=== PATIENT | female | born 1990 | race Hispanic/Latino ===

== ENCOUNTER 2017-06-10 13:44 | Emergency (ER) | payer OTHER ==
[~2017-06-10] VITALS: Ht 152.4 cm; Wt 63.5 kg
[~2017-06-10 13:44] MED LIST: AUGMENTIN 500-1 EACH PO; COLACE100 M1 PO; FEROSUL325 M1 PO; IBUPROFEN800 MG PO; ORTHO TRI-CYCL1 EACH PO; PERCOCET 325 MG1 TA2 PO; PROTONIX 40MG T40 MG PO; TRANDATE-NORMO100 MG PO; ZOFRAN ODT4 MG SL
--- NOTE | 2017-06-10 14:50 | ED INFLUENZA/URI COMPLAINT ---
History of Present Illness General Chief Complaint: Upper Respiratory Sx/Fever Stated Complaint: URI SORE THROAT Source: patient, old records Exam Limitations: no limitations Vital Signs & Intake/Output Vital Signs & Intake/Output Vital Signs Date Time Temp Pulse Resp B/P B/P Pulse O2 O2 Flow FiO2 Mean Ox Delivery Rate 06/10 1546 98.4 94 16 111/67 98 Room Air 06/10 1353 98.0 103 18 128/80 99 Room Air Allergies Coded Allergies: NO KNOWN ALLERGIES (08/02/15) Reconcile Medications Codeine Phosphate/Guaifenesi (Guaifen-Codeine 100-10 MG/5 Ml) 10 MG-100 MG/5 ML LIQUID 10 ML PO Q6HR PRN COUGH Docusate Sodium (Colace) 100 MG CAPSULE 1 CAP PO BID CONSTRIPATION Ferrous Sulfate (Ferosul) 325 MG (65 MG IRON) TABLET 1 TAB PO BID ANEMIA Ibuprofen 600 MG TABLET 1 TAB PO TID PRN FEVER with food Norgestimate-Ethinyl Estradiol (Ortho Tri-Cyclen 28 Tablet) [id number] TABLET 1 TAB PO DAILY vaginal bleeding take BID until vaginal bleeding stops, and then switch to once daily once bleeding stops Oseltamivir Phosphate (Tamiflu) 75 MG CAPSULE 1 CAP PO BID influenza Triage Note: PT TO ER C/C 4 DAY HX OF COUGH, FEVERS, CHILLS AND NAUSEA. FLU SWAB SENT Triage Nurses Notes Reviewed? yes Onset: Abrupt Duration: day(s): (4), constant Timing: recent history Severity: mild, moderate Severity Numbers: 5 No Modifying Factors: none Associated Symptoms: denies : No Patient currently breastfeeds: No HPI: 27-year-old female presents complaining of 4 day history of generalized malaise bodyaches, subjective fever chills cough sore throat. Her daughter is been sick with similar symptoms. She is taking [id number] Tylenol once. She had one episode of vomiting 4 days ago. No diarrhea. No modifying factors or associated symptoms otherwise. (Joao Otero) Past History Travel History Traveled to [place] past 21 day No Medical History Any Pertinent Medical History? see below for history Neurological: NONE EENT: NONE Cardiovascular: NONE Respiratory: NONE Gastrointestinal: NONE Hepatic: NONE Renal: NONE Musculoskeletal: NONE Psychiatric: NONE Endocrine: NONE Blood Disorders: anemia Cancer(s): NONE INTAKE MAN/Reproductive: NONE Other Medical Hx: Splenectomy Surgical History Surgical History: non-contributory Psychosocial History What is your primary language [place] Tobacco Use: Never used Family History Hx Contributory? No (Joao Otero) Review of Systems Review of Systems Constitutional: Reports: see HPI. Comments Review of systems: See HPI, All other systems negative. Constitutional, chills fever, no malaise HEENT: no sore throat no congestion, no ear pain Cardiovascular: No chest pain , no palpitation Skin: no rashes, no change in skin Respiratory: No dyspnea (+) cough GI: No nausea no vomiting, no diarrhea gu: no dysuria Muscle skeletal: No joint pain, no back pain, no neck pain, Neurologic: , no headache Heme/endocrine: No bruising Immunology: No lymphadenopathy (Joao Otero) Physical Exam Physical Exam General Appearance: well developed/nourished, no apparent distress, alert, awake Ears, Nose, Throat: normal ENT inspection Comments: Well-developed well-nourished patient in no apparent distress. Head/Face: Atraumatic, no maxillary/frontal sinus tenderness, no facial swelling Eyes: PERRL, EOMI, no conjunctival injection Ear:External auditory canal and Tympanic membranes clear Nose: atraumatic.Normal inspection: No bleeding Throat: Moist mucous membranes.Pharynx normal. No pharyngeal erythema/exudate seen. No stridor/drooling or assymetry. No swelling or edema. Neck: Supple, no lymphadenopathy, FROM Back: FROM Cardiovascular: Regular rate and rhythms no murmur Respiratory: No respiratory distress. Patient speaking in full complete sentences. Breath sounds clear to auscultation bilaterally: NO W/R/R Extremities: full range of motion Neuro: awake, alert, and oriented to person, place and time. There were no obvious focal neurologic abnormalities. Skin: Warm & dry;No appreciable rash on exposed skin Psych: Mood affect normal, normal memory normal judgment. Core Measures Sepsis Present: No Sepsis Focused Exam Completed? No (Joao Otero) Progress Differential Diagnosis: influenza, pneumonia, pharyngitis, sinusitis Plan of Care: Orders Procedure Date/time Status VIRAL CULTURE 06/10 135 Active RAPID VIRAL INFLUENZA A 06/10 1356 Complete Laboratory Tests 06/10/17 1357: Virus Culture Pending Microbiology 06/10 135 NASOPHARYN: Influenza Virus A & B Rapid Smear - COMP INFLUENZA TYPE A I discussed with the patient at length all of their results. I had an extensive conversation regarding need for close follow up with their primary care physician this week as well as return precautions. I answered all of their questions, they feel comfortable with the plan and follow-up care. I discussed with the patient/family the medications that they will receive. I gave them signs and symptoms that could indicate an adverse reaction. I have advised them to limit their activities until they can see how they respond to the medication. Initial ED EKG: none (Joao Otero) Departure Departure Time of Disposition: 1509 Disposition: HOME OR SELF CARE Condition: Stable Clinical Impression Primary Impression: Influenza Referrals: Patient Has No Primary Care Dr (PCP/Family) Additional Instructions: Tamiflu as directed cough medicine with codeine as discussed -use caution as this is a narcotic and will make you drowsy. No driving while taking. Ibuprofen as discussed. Drink plenty of fluids. rest, primary care physician this week. Departure Forms: Customer Survey General Discharge Information Prescriptions: Current Visit Scripts Oseltamivir Phosphate (Tamiflu) 1 CAP PO BID #10 CAP Codeine Phosphate/Guaifenesi (Guaifen-Codeine 100-10 MG/5 Ml) 10 ML PO Q6HR PRN COUGH #150 ML Ibuprofen 1 TAB PO TID PRN FEVER #30 TAB with food (Joao Otero) PA/TRAVELING REPAIR ACCOUNTANT Co-Sign Statement Statement: ED Attending supervision documentation- I saw and evaluated the patient. I have also reviewed all the pertinent lab results and diagnostic results. I agree with the findings and the plan of care as documented in the PA's/TRAVELING REPAIR ACCOUNTANT's documentation. x I have reviewed the ED Record and agree with the PA's/TRAVELING REPAIR ACCOUNTANT's documentation. [] Additions or exceptions (if any) to the PAs/TRAVELING REPAIR ACCOUNTANT's note and plan are summarized below: [] (Concepcion SPRAGUE,Tre)
[2017-06-10] MEDS ORDERED: TAMIFLU75 M1 PO (15:12)
[2017-06-10] MEDS ORDERED: GUAIFEN-CODEIN118 M1 PO (15:12)
[2017-06-10] MEDS ORDERED: IBUPROFEN600 M1 PO (15:12)
[2017-06-10 15:46] VITALS: BP 111/67
== END 2017-06-10 15:47 ==
LOC: ERH 13:44
DX: J11.1 Influenza due to unidentified influenza virus with other respiratory manifestations (principal)
CPT/HCPCS: 87804; 87804-59